=== PATIENT | female | born 1965 | race Two or more races ===

== ENCOUNTER 2023-04-08 09:15 | Emergency (ER) | payer OTHER ==
[~2023-04-08] VITALS: Ht 162.6 cm; Wt 101.2 kg
== END 2023-04-08 12:24 | disposition home or self-care (01) ==
LOC: ER 09:15
DX: T07.XXXA Unspecified multiple injuries, initial encounter (principal); W57.XXXA Bitten or stung by nonvenomous insect and other nonvenomous arthropods, initial encounter; Y92.89 Other specified places as the place of occurrence of the external cause; L08.9 Local infection of the skin and subcutaneous tissue, unspecified